=== PATIENT | male | born 1975 | race Caucasian/White ===

== ENCOUNTER → 2019-01-17 | Outpatient (CLI) | payer OTHER ==
[~2019-01-17] MED LIST: FISH OIL 1,001000 M2 PO; LIPITOR 20 MG T20 M1 PO; VITAMIN D1000 UNI1 PO
== END | disposition home or self-care (01) ==
LOC: M.PC 09:00
DX: M17.11 Unilateral primary osteoarthritis, right knee (principal); M23.91 Unspecified internal derangement of right knee; Z98.890 Other specified postprocedural states; Z88.8 Allergy status to other drugs, medicaments and biological substances; Z79.899 Other long term (current) drug therapy

== ENCOUNTER → 2019-04-09 | Outpatient (CLI) | payer OTHER ==
[~2019-04-09] MED LIST changes: +ADVIL200 M3 PO; +MAGNESIUM250 M1 PO
== END ==
LOC: M.PC 02:24
DX: M17.0 Bilateral primary osteoarthritis of knee (principal)